=== PATIENT | male | born 1955 | race Caucasian/White ===

== ENCOUNTER 2017-04-09 08:31 | Day surgery (SDC) | payer OTHER ==
[2017-04-05 10:34] VITALS: BMI 32.6
[2017-04-09] MEDS ORDERED: LIDOCAINE HCL/PF 2% SDV 5ML VIAL ONE (08:34)
[2017-04-09] MEDS ORDERED: PROPOFOL 20 ML ONE ×2 (08:34)
[2017-04-09 09:41] VITALS: TEMP 97.5
[2017-04-09 10:01] VITALS: BP 129/93; PULSE 60
== END 2017-04-09 10:05 | disposition home or self-care (01) ==
LOC: FASU-ENDO 08:31
PROVIDERS: ATTEND Internal Medicine Gastroenterology
PROC: 0DJD8ZZ Inspection of Lower Intestinal Tract, Via Natural or Artificial Opening Endoscopic (ICD-10-PCS; principal; 2017-04-09 09:11)
DX: Z86.010 Personal history of colon polyps (principal); Z80.0 Family history of malignant neoplasm of digestive organs

== ENCOUNTER 2023-03-12 08:10 | Day surgery (SDC) | payer OTHER ==
[2023-03-07 09:51] VITALS: BMI 34.2
[2023-03-12 08:29] VITALS: RESP 18
[2023-03-12 09:44] VITALS: BP 104/61; PULSE 73; TEMP 97.5
== END 2023-03-12 10:10 | disposition home or self-care (01) ==
LOC: FASU-ENDO 08:10
PROVIDERS: ATTEND Internal Medicine Gastroenterology
PROC: 0DBL8ZX Excision of Transverse Colon, Via Natural or Artificial Opening Endoscopic, Diagnostic (ICD-10-PCS; 2023-03-12)
PROC: 0DBN8ZX Excision of Sigmoid Colon, Via Natural or Artificial Opening Endoscopic, Diagnostic (ICD-10-PCS; principal; 2023-03-12 09:19)
DX: Z12.11 Encounter for screening for malignant neoplasm of colon (principal); K63.5 Polyp of colon; K57.30 Diverticulosis of large intestine without perforation or abscess without bleeding; Z83.719 Family history of colon polyps, unspecified; Z80.0 Family history of malignant neoplasm of digestive organs
CPT/HCPCS: 88305-TC

== ENCOUNTER 2023-04-30 16:06 | Emergency (ER) | payer OTHER, MEDICARE ==
[2023-04-30 16:22] VITALS: BP 153/94; PULSE 80; RESP 20; TEMP 97.7; BMI 33.4
[2023-04-30] MEDS ORDERED: ALBUTEROL SO4 HFA INHALER IH ONE (17:17)
[2023-04-30] MEDS: ALBUTEROL SO4 HFA INHALER IH ONE (17:20)
== END 2023-04-30 17:48 | disposition home or self-care (01) ==
LOC: FER 16:06
DX: R05.9 Cough, unspecified (principal); F17.210 Nicotine dependence, cigarettes, uncomplicated; Z20.822 Contact with and (suspected) exposure to COVID-19
CPT/HCPCS: 0241U-QW; 71045-TC-FY; 99284-25